=== PATIENT | female | born 1950 | race Hispanic/Latino ===

== ENCOUNTER 2017-06-25 06:14 | Day surgery (SDC) | payer MEDICARE, SELFPAY ==
[2017-06-20 11:01] VITALS: RESP 18
[2017-06-25 06:50] VITALS: BMI 24.7
[2017-06-25] MEDS ORDERED: Lactated Ringer's 1,000 ML IV ONE (07:37)
[2017-06-25] MEDS ORDERED: Bupivacaine 0.5% Inj(30mL) ONE (07:52)
[2017-06-25] MEDS ORDERED: Lidocaine 1% Inj (20ml) ONE (07:52)
[2017-06-25] MEDS ORDERED: Propofol 10 mg/ml Inj (20 ML) ONE ×4 (08:02→09:31)
[2017-06-25] MEDS ORDERED: Etomidate 20 mg/10ml Inj IV ONE (08:03)
[2017-06-25] MEDS ORDERED: Phenylephrine 10 mg/ml Inj ONE (08:03)
[2017-06-25] MEDS ORDERED: Bupivacaine 0.25%-Epinephrine 1:200,000 (30 ml) Inj ONE (08:20)
[2017-06-25] MEDS ORDERED: Midazolam 2 MG/2 ML VIAL ONE (08:44)
[2017-06-25] MEDS ORDERED: Dexamethasone 4 mg/1 ml ONE (09:15)
[2017-06-25] MEDS ORDERED: MethylPREDNISolone Depo 40 mg/ml Inj ONE (09:38)
--- NOTE | 2017-06-25 09:58 | PCM.SURG1 ---
Surgeon's Initial Post Op Note - Surgeon's Notes Surgeon: Lucas Pierce MD Dietitian Teacher: Alix Talbot PA-C Type of Anesthesia: General Endo Pre-Operative Diagnosis: Left knee meniscus tear Operative Findings: see op report Post-Operative Diagnosis: same as pre-op dx Operation Performed: Left knee arthroscopy, partial medial and lateral meniscectomy, synovectomy Specimen/Specimens Removed: none Estimated Blood Loss: EBL {In ML}: 5 Date of Surgery/Procedure: 06/25/17 Time of Surgery/Procedure: 09:00
[2017-06-25] MEDS ORDERED: Dexamethasone 4 mg/1 ml IVP PRN (10:01)
[2017-06-25] MEDS ORDERED: HYDROmorphone 0.5 mg/0.5 ml ISec IVP PRN (10:01)
[2017-06-25] MEDS ORDERED: DiphenhydrAMINE 50 mg/ml Inj IVP PRN (10:01)
[2017-06-25] MEDS ORDERED: Lactated Ringer's 1,000 ML IV SCH (10:15)
[2017-06-25 12:17] VITALS: O2SAT 100
[2017-06-25 14:34] VITALS: BP 140/76; PULSE 90; TEMP 98.2
--- NOTE | 2017-06-25 20:38 | OP ---
DATE OF PROCEDURE: 06/25/2017 MANAGER BUSINESS SYSTEMS: Alix Talbot PA-C. PREOPERATIVE DIAGNOSES: 1. Left knee medial meniscal tear. 2. Synovitis. 3. Adhesions. POSTOPERATIVE DIAGNOSES: 1. Left knee major synovitis of all three compartments. 2. Tears of the posterior horn and body of lateral meniscus. 3. Tear for the body of lateral meniscus. 4. Grade 4 chondromalacia of the medial femoral condyle, trochlea, and patella. 5. Anterior patellofemoral adhesions. PROCEDURES PERFORMED: 1. Left knee arthroscopy with partial medial and lateral meniscectomy. 2. Major synovectomy of all three compartments. 3. Chondroplasty of patellofemoral joint and medial femoral condyle. 4. Lysis of adhesions without manipulations. 5. Injection of the large joint. ANESTHESIA TYPE: General. SPECIMEN: None. COMPLICATION: None. INDICATIONS: After failing a course of nonoperative therapy, the patient elected to undergo the above procedure. In the office, the risks and possible complications of knee arthroscopy were discussed in detail with the patient. These risks include but are not limited to continued pain, lack of motion, infection, vascular injury, DVT/PE, nerve injury including peroneal nerve dysfunction, reflex sympathetic dystrophy, compartment syndrome, unforeseen medical and/or anesthesia complications, limb loss, and even . The patient expressed an understanding of the risks and possible benefits of the procedure, and is also aware of the alternatives to surgery. An informed consent was obtained, and was checked immediately preop. DESCRIPTION OF PROCEDURE: The patient was correctly identified in the holding area and the left knee was marked with the surgeon's initials. The patient was transported to the operating room and placed in the supine position, general anesthesia was obtained. A preoperative orthopedic exam revealed effusion of 1+, range of motion 5 to 120, stable to varus and valgus stress. The lower extremity was prepped and draped in the standard fashion, and the thigh was placed in an arthroscopic leg dimas. A well-padded tourniquet was applied to the patient's thigh. Time-out was completed confirming the correct operative site. Esmarch was used to exsanguinate the leg and tourniquet was inflated to 300 mmHg. A standard anterolateral viewing portals were made with a #11 blade after subdermal 1% lidocaine with epinephrine injection. The knee was distended with normal saline and epinephrine in a 1:1,000,000 mixture at an initial pressure of 35 mmHg. The arthroscope was inserted from the anterolateral portal and moved into the medial compartment. Next, the anteromedial working portal was made with spinal needle localization. The arthroscopic probe was inserted, and all compartments of the knee were sequentially visualized. FINDINGS: Arthroscopic examination of the knee revealed: 1. Major synovitis of all 3 compartments. 2. Tears of the posterior horn extending to the body of medial meniscus. 3. Tears of the body of lateral meniscus. 4. Grade 4 chondromalacia of medial femoral condyle. 5. Grade 4 chondromalacia of the patellofemoral compartment. 6. Adhesions of anterior patellofemoral compartment. ACL and PCL were intact. Partial medial meniscectomy was performed with a combination of hand instruments and a 4.0-mm motorized shaver. The meniscus was debrided to a smooth, stable border with an excursion of less than 3 mm. Partial lateral meniscectomy was performed with a combination of hand instruments and a 4.0-mm motorized shaver. The meniscus was debrided to a smooth, stable border with an excursion of less than 5 mm. The motorized shaver was used to mechanically debride the loose, fibrillated, and fragmented chondral edges of the medial femoral condyle, medial and lateral patellar facet, and trochlea to a stable border. Extreme care was taken to not disrupt the adjacent chondral surface. The edges of injured chondral area were probed to ensure stability after the shaver was withdrawn from the knee. The motorized shaver was used to perform a synovectomy of the medial, lateral, and patellofemoral compartments. The hypertrophic synovium was resected with minimal bleeding. No synovial incarceration was noted after synovectomy when the knee was put through a full passive range of motion. Due to injuries to the patellofemoral region resulting in organized scar and suprapatellar adhesions, a decision was made to perform and anterior interval release to decrease the patellofemoral joint reaction force and relieve pressures over the patella and trochlea. The synovectomy was carried over to the suprapatellar pouch and an anterior interval release was performed over the anterior compartment and the suprapatellar pouch with the motorized shaver. The anterior fat pad was released and debulked during this procedure. The inflow was shut off and the area checked for hemostasis. Small bleeders were coagulated with the radiofrequency device. Finally, 1 mL of 40 mg Depo-Medrol mixed with 9 mL of 0.25% Marcaine was injected within the knee joint. Post operatively, the patient will be weight bearing as tolerated and will utilize my standard post arthroscopy rehab protocol. The patient will be started on straight leg raising and quadriceps setting exercises in the recovery room and will progress to prone hangs as well as prone knee flexion exercises using an active assisted construct. During this procedure, I was assisted by Alix Talbot PA-C, who assisted in positioning the patient on the operating room table as well as transferring the patient from the operating room table to the recovery room stretcher. In addition, Alix Talbot, assisted me during the actual operative procedure by positioning the patient's extremity to allow for easier arthroscopic access to all areas of the joint. The presence of Alix Talbot PA-c, as my operative corporate administrative assistant, was medically necessary to ensure the utmost safety of the patient in the pre, intra-, and postoperative periods. Lucas Pierce MD
== END 2017-06-25 16:00 | disposition home or self-care (01) ==
LOC: H.OPSURG 06:14
PROVIDERS: ATTEND Orthopaedic Surgery
DX: M65.862 Other synovitis and tenosynovitis, left lower leg (principal); M22.42 Chondromalacia patellae, left knee; M23.252 Derangement of posterior horn of lateral meniscus due to old tear or injury, left knee
CPT/HCPCS: 29876; 29880; 97161; G8978; G8979; G8980; J0171; J0690; J1030; J1100; J1170; J2001; J2250; J2370; J2405; J2704; J2765; J3010; J7030; J7120